=== PATIENT | male | born 1960 | race Caucasian/White ===

== ENCOUNTER 2020-12-01 10:19 | Inpatient (IN) | payer OTHER, SELFPAY ==
[~2020-12-01] VITALS: Ht 185.4 cm; Wt 96.7 kg
[~2020-12-01 10:19] MED LIST: CHANTIX1 MG PO; FLEXERIL10 MG PO; HUMALOG INSULIN PUMP; LISINOPRIL 5 MG5 MG PO; NEURONTIN100 M1 PO; NEURONTIN300 MG PO; NORCO 5-325 TA1 EACH PO; SYNTHROID150 MCG PO; VICODIN 10/3251 EACH PO; ZOCOR10 MG PO
[2020-12-01 10:51] LABS: BASOPHIL 0.2 % (0-2); EOSINOPHIL 0 % (0-5); HCT 40.8 % (42.0-52.0); HGB 12.5 g/dl (13.2-18.0); MCH 32.7 pg (25.0-31.0); MCHC 30.6 g/dL (32.0-36.0); MCV 106.8 fL (78.0-100.0); MONOCYTE 6.8 % (0-12); MPV 11.2 fL (6.0-9.5); NEUTROPHIL 85.9 % (41-80); NRBC 0; PLT 240 K/uL (150-400); RBC 3.82 M/uL (4.70-6.00); RDW 12.8 % (11.5-14.0); WBC 16.9 K/uL (4.0-10.5)
[2020-12-01 12:02] LABS: ALBUMIN 3.5 g/dL (3.4-5.0); ALKALINE PHOSHATASE 101 U/L (46-116); ALT 29 U/L (16-63); AST 35 U/L (15-37); BILIRUBIN - TOTAL 0.5 mg/dL (0.2-1.0); BUN 60 mg/dL (7-18); BUN/CREAT RATIO (CALC) 21.4 RATIO; CHLORIDE 92 mmol/L (98-107); CO2 (BICARBONATE) 10 mmol/L (21-32); GLOBULIN (CALCULATION) 3.6 g/dL; POTASSIUM 5.3 mmol/L (3.5-5.1); TOTAL PROTEIN 7.1 g/dL (6.4-8.2)
[2020-12-01 12:05] LABS: GLUCOSE >750 mg/dL (74-106)
[2020-12-01 12:41] LABS: BILIRUBIN 1+ mg/dL (NEGATIVE); BLOOD 1+ Ery/uL (NEGATIVE); CLARITY CLEAR (CLEAR); COLOR YELLOW (YELLOW); GLUCOSE (U) 3+ mg/dL (NORMAL); LEUKOCYTES NEGATIVE Leu/uL (NEGATIVE); NITRITE NEGATIVE (NEGATIVE); PROTEIN NEGATIVE (NEGATIVE); SPECIFIC GRAVITY 1.015 (1.001-1.030); UROBILINOGEN 0.2 mg/dL (0.2-1.0)
[2020-12-01 12:47] LABS: URINARY WBC RARE
[2020-12-01 12:48] LABS: SQUAMOUS EPITHELIAL CELLS RARE
[2020-12-01] MEDS ORDERED: LEVOTHYROXINE137 MC1 PO (15:59)
[2020-12-01] MEDS ORDERED: ZOLOFT50 MG PO (16:00)
[2020-12-01] MEDS ORDERED: LIPITOR20 M1 PO (16:00)
[2020-12-01] MEDS ORDERED: PRINIVIL10 MG PO (16:01)
[2020-12-01] MEDS ORDERED: ZANAFLEX4 M1 PO (16:03)
[2020-12-01] MEDS ORDERED: GABAPENTIN800 MG PO (16:03)
[2020-12-01] MEDS ORDERED: HYDROCODON-ACE1 EAC2 PO (16:04)
[2020-12-01 18:24] LABS: CREATININE 2.4 mg/dL (0.67-1.17)
[2020-12-02 03:32] LABS: HCT 34.5 % (42.0-52.0); HGB 11.8 g/dl (13.2-18.0); MCH 32.4 pg (25.0-31.0); MCHC 34.2 g/dL (32.0-36.0); MCV 94.8 fL (78.0-100.0); MPV 10.6 fL (6.0-9.5); RBC 3.64 M/uL (4.70-6.00); RDW 12.9 % (11.5-14.0); WBC 16.3 K/uL (4.0-10.5)
[2020-12-02 03:44] LABS: BUN/CREAT RATIO (CALC) 28.9 RATIO; CREATININE 1.8 mg/dL (0.67-1.17); POTASSIUM 4.3 mmol/L (3.5-5.1)
--- NOTE | 2020-12-02 13:53 | NUR ---
12/02/20 Mr. Cevallos lives alone. He uses a cane. Otherwise, he is independent in the home and community. Mr. Cevallos has PCP, Dr. Esparza, and criminal justice faculty. He reports to manage his diabetes. Mr. Cevallos has a $200.00 co-payment for his [employer]. He was referred to [employer] financial assistance program and [facility]. - Mr. Cevallos is not interested in services.
[2020-12-03 04:29] LABS: HCT 34.7 % (42.0-52.0); HGB 11.6 g/dl (13.2-18.0); MCH 32.6 pg (25.0-31.0); MCHC 33.4 g/dL (32.0-36.0); MCV 97.5 fL (78.0-100.0); MPV 10.5 fL (6.0-9.5); RBC 3.56 M/uL (4.70-6.00); RDW 13.3 % (11.5-14.0); WBC 8.3 K/uL (4.0-10.5)
[2020-12-03 04:44] LABS: CREATININE 1.13 mg/dL (0.67-1.17); POTASSIUM 4.1 mmol/L (3.5-5.1)
--- NOTE | 2020-12-03 16:49 | NUR ---
12/03/20 PT recommended HH. A referral was made to [facility] per patient choice; affliation explained.
[2020-12-04 06:21] LABS: HGB 12.3 g/dl (13.2-18.0); MCH 31.9 pg (25.0-31.0); MCHC 33.2 g/dL (32.0-36.0); MCV 95.9 fL (78.0-100.0); MPV 10.4 fL (6.0-9.5); RBC 3.86 M/uL (4.70-6.00); RDW 12.6 % (11.5-14.0)
[2020-12-04 06:52] LABS: BUN/CREAT RATIO (CALC) 15.4 RATIO; CREATININE 0.78 mg/dL (0.67-1.17); POTASSIUM 3.6 mmol/L (3.5-5.1)
[2020-12-04] MEDS ORDERED: NORVASC5 MG PO (10:34)
== END 2020-12-04 15:55 | disposition home health service (06) | DRG 638 ==
LOC: FER 10:19 → FICU 12:15 → FTCU 12-03 08:57
PROVIDERS: Emergency Medicine; ADMIT Hospitalist
DX: E10.10 Type 1 diabetes mellitus with ketoacidosis without coma (principal); N17.9 Acute kidney failure, unspecified; E03.9 Hypothyroidism, unspecified; I10 Essential (primary) hypertension; Z20.822 Contact with and (suspected) exposure to COVID-19; E78.5 Hyperlipidemia, unspecified; G89.29 Other chronic pain; M54.9 Dorsalgia, unspecified; F17.210 Nicotine dependence, cigarettes, uncomplicated
CPT/HCPCS: 36415; 36600; 80048; 80053; 81001; 82803; 82962; 83605; 85025; 87040; 87088; 94010; 97116; 97162; 97530-GP; J1650; J2405; J2543; J2765; J3480; J7030; J7040; Q0169; U0002

== ENCOUNTER 2021-05-16 13:11 | Inpatient (IN) | payer OTHER ==
[~2021-05-16] VITALS: Ht 185.4 cm; Wt 97.3 kg
[~2021-05-16 13:11] MED LIST changes: +GABAPENTIN800 MG PO; +HYDROCODON-ACE1 EAC2 PO; +LEVOTHYROXINE137 MC1 PO; +LIPITOR20 M1 PO; +NORVASC5 MG PO; +PRINIVIL10 MG PO; +ZANAFLEX4 M1 PO; +ZOLOFT50 MG PO
[2021-05-16 13:39] LABS: BASOPHIL 0.3 % (0-2); EOSINOPHIL 0 % (0-5); HCT 38.3 % (42.0-52.0); HGB 12.6 g/dl (13.2-18.0); LYMPHOCYTE 6.6 % (15-48); MCH 32.1 pg (25.0-31.0); MCHC 32.9 g/dL (32.0-36.0); MCV 97.5 fL (78.0-100.0); MONOCYTE 6.7 % (0-12); MPV 11.1 fL (6.0-9.5); NEUTROPHIL 85.5 % (41-80); NRBC 0; PLT 267 K/uL (150-400); RBC 3.93 M/uL (4.70-6.00); RDW 13.5 % (11.5-14.0); WBC 13.4 K/uL (4.0-10.5)
[2021-05-16 14:14] LABS: ALBUMIN 3.8 g/dL (3.4-5.0); BILIRUBIN - TOTAL 0.9 mg/dL (0.2-1.0); BUN/CREAT RATIO (CALC) 25.9 RATIO; CREATININE 1.62 mg/dL (0.67-1.17); GLOBULIN (CALCULATION) 3.9 g/dL; TOTAL PROTEIN 7.7 g/dL (6.4-8.2)
[2021-05-16 14:25] LABS: CORONAVIRUS 2019 SARS-COV-2 NEGATIVE (NEGATIVE); INFLUENZA A NAA NEGATIVE (NEGATIVE)
[2021-05-16 18:05] LABS: BUN/CREAT RATIO (CALC) 25.4 RATIO; CREATININE 1.73 mg/dL (0.67-1.17); MAGNESIUM 2.1 mg/dL (1.8-2.4); POTASSIUM 4.9 mmol/L (3.5-5.1)
[2021-05-16 18:19] LABS: BILIRUBIN NEGATIVE (NEGATIVE); BLOOD NEGATIVE Ery/uL (NEGATIVE); CLARITY CLEAR (CLEAR); COLOR YELLOW (YELLOW); GLUCOSE (U) 3+ mg/dL (NORMAL); LEUKOCYTES NEGATIVE Leu/uL (NEGATIVE); NITRITE NEGATIVE (NEGATIVE); PROTEIN NEGATIVE (NEGATIVE); SPECIFIC GRAVITY 1.025 (1.001-1.030); UROBILINOGEN 0.2 mg/dL (0.2-1.0); pH 5.5 (5.0-9.0)
--- NOTE | 2021-05-16 18:24 | NUR ---
BLADDER SCANNED 294ML AFTER VOIDING 650ML
[2021-05-16 23:43] LABS: BUN/CREAT RATIO (CALC) 28.8 RATIO; CREATININE 1.32 mg/dL (0.67-1.17); POTASSIUM 4.3 mmol/L (3.5-5.1)
--- NOTE | 2021-05-17 05:11 | NUR ---
ANION GAP OF 6.4 REPORTED TO MIRIAM HERNÁNDEZ. NO NEW ORDERS.
[2021-05-17 06:10] LABS: CREATININE 1.16 mg/dL (0.67-1.17); POTASSIUM 4.5 mmol/L (3.5-5.1)
[2021-05-17 11:32] LABS: BUN/CREAT RATIO (CALC) 30.3 RATIO; CREATININE 0.99 mg/dL (0.67-1.17); POTASSIUM 4.1 mmol/L (3.5-5.1)
[2021-05-18 05:45] LABS: BASOPHIL 0.5 % (0-2); EOSINOPHIL 1.8 % (0-5); HCT 31.3 % (42.0-52.0); LYMPHOCYTE 25.2 % (15-48); MCH 32.4 pg (25.0-31.0); MCHC 35.1 g/dL (32.0-36.0); MONOCYTE 7.3 % (0-12); MPV 10.6 fL (6.0-9.5); NEUTROPHIL 64.9 % (41-80); NRBC 0; PLT 166 K/uL (150-400); RBC 3.39 M/uL (4.70-6.00); RDW 14.2 % (11.5-14.0); WBC 6.3 K/uL (4.0-10.5)
[2021-05-18 05:48] LABS: MCV 92.3 fL (78.0-100.0)
[2021-05-18 06:09] LABS: BUN/CREAT RATIO (CALC) 18.9 RATIO; CREATININE 0.9 mg/dL (0.67-1.17); POTASSIUM 4.5 mmol/L (3.5-5.1)
--- NOTE | 2021-05-18 12:02 | NUR ---
05/18/21 Patient to be discharged. No discharge planning needs are anticipated.
[2021-06-23] MEDS ORDERED: PEPCID AC20 MG PO (11:52)
== END 2021-05-18 12:34 | disposition home or self-care (01) | DRG 638 ==
LOC: FER 13:11 → FICU 14:59 → FTCU 05-17 16:56 → FICU 05-18 11:09 → FTCU 05-18 11:11
PROVIDERS: Hospitalist; Nurse Practitioner Family; ADMIT Allergy & Immunology Allergy
DX: E10.10 Type 1 diabetes mellitus with ketoacidosis without coma (principal); N17.9 Acute kidney failure, unspecified; E03.9 Hypothyroidism, unspecified; Z20.822 Contact with and (suspected) exposure to COVID-19; E78.5 Hyperlipidemia, unspecified; G89.29 Other chronic pain; I10 Essential (primary) hypertension; M54.9 Dorsalgia, unspecified; R91.1 Solitary pulmonary nodule; F17.200 Nicotine dependence, unspecified, uncomplicated; E87.5 Hyperkalemia; E86.9 Volume depletion, unspecified; Z79.899 Other long term (current) drug therapy; Z79.890 Hormone replacement therapy; Z98.890 Other specified postprocedural states
CPT/HCPCS: 36415; 36600; 71045; 74018; 80048; 80053; 81003; 82803; 82962; 83605; 83735; 85025; 87040; 93005; J0696; J1170; J1650; J2405; J7030; J7120; J7121; U0002

== ENCOUNTER 2021-06-10 22:58 | Emergency (ER) | payer OTHER ==
[2021-06-10 23:28] LABS: BASOPHIL 0.9 % (0-2); EOSINOPHIL 4.4 % (0-5); HCT 31.9 % (42.0-52.0); HGB 10.9 g/dl (13.2-18.0); LYMPHOCYTE 31.6 % (15-48); MCH 32.5 pg (25.0-31.0); MCHC 34.2 g/dL (32.0-36.0); MCV 95.2 fL (78.0-100.0); MONOCYTE 8.8 % (0-12); MPV 10.3 fL (6.0-9.5); NEUTROPHIL 53.8 % (41-80); NRBC 0; PLT 199 K/uL (150-400); RBC 3.35 M/uL (4.70-6.00); RDW 14.1 % (11.5-14.0); WBC 6.6 K/uL (4.0-10.5)
[2021-06-10 23:41] LABS: ALBUMIN 3.5 g/dL (3.4-5.0); BILIRUBIN - TOTAL 0.2 mg/dL (0.2-1.0); BUN/CREAT RATIO (CALC) 12.2 RATIO; CREATININE 1.15 mg/dL (0.67-1.17); GLOBULIN (CALCULATION) 3.2 g/dL; TOTAL PROTEIN 6.7 g/dL (6.4-8.2)
[2021-06-11 03:21] LABS: BILIRUBIN NEGATIVE (NEGATIVE); BLOOD NEGATIVE Ery/uL (NEGATIVE); CLARITY CLEAR (CLEAR); COLOR YELLOW (YELLOW); GLUCOSE (U) NORMAL (NORMAL); LEUKOCYTES NEGATIVE Leu/uL (NEGATIVE); NITRITE NEGATIVE (NEGATIVE); PROTEIN NEGATIVE (NEGATIVE); SPECIFIC GRAVITY <=1.005 (1.001-1.030); UROBILINOGEN 0.2 mg/dL (0.2-1.0); pH 5.5 (5.0-9.0)
[2021-06-23] MEDS ORDERED: PEPCID AC20 MG PO (11:52)
== END 2021-06-11 04:13 | disposition home or self-care (01) ==
LOC: FER 22:58
PROVIDERS: Emergency Medicine
DX: E10.649 Type 1 diabetes mellitus with hypoglycemia without coma (principal)
CPT/HCPCS: 36415; 71045; 80053; 81003; 85025

== ENCOUNTER 2021-07-20 03:16 | Emergency (ER) | payer OTHER ==
[~2021-07-20 03:16] MED LIST changes: +PEPCID AC20 MG PO
[2021-07-20 03:41] LABS: BASOPHIL 1.2 % (0-2); EOSINOPHIL 3.1 % (0-5); HCT 34.5 % (42.0-52.0); HGB 11.5 g/dl (13.2-18.0); LYMPHOCYTE 25.2 % (15-48); MCHC 33.3 g/dL (32.0-36.0); MCV 99.1 fL (78.0-100.0); MONOCYTE 9.3 % (0-12); MPV 10.1 fL (6.0-9.5); NRBC 0; PLT 213 K/uL (150-400); RBC 3.48 M/uL (4.70-6.00); RDW 14.1 % (11.5-14.0); WBC 4.8 K/uL (4.0-10.5)
[2021-07-20 03:58] LABS: ALBUMIN 3.3 g/dL (3.4-5.0); BILIRUBIN - TOTAL 0.3 mg/dL (0.2-1.0); BUN/CREAT RATIO (CALC) 9.1 RATIO; CREATININE 1.1 mg/dL (0.67-1.17); GLOBULIN (CALCULATION) 3.4 g/dL; TOTAL PROTEIN 6.7 g/dL (6.4-8.2)
[2021-07-20 04:34] LABS: BILIRUBIN NEGATIVE (NEGATIVE); BLOOD NEGATIVE Ery/uL (NEGATIVE); CLARITY CLEAR (CLEAR); COLOR YELLOW (YELLOW); GLUCOSE (U) NORMAL (NORMAL); LEUKOCYTES NEGATIVE Leu/uL (NEGATIVE); NITRITE NEGATIVE (NEGATIVE); PROTEIN NEGATIVE (NEGATIVE); SPECIFIC GRAVITY <=1.005 (1.001-1.030); UROBILINOGEN 0.2 mg/dL (0.2-1.0)
== END 2021-07-20 05:30 | disposition home or self-care (01) ==
LOC: FER 03:16
PROVIDERS: Emergency Medicine
DX: R41.82 Altered mental status, unspecified (principal); E11.9 Type 2 diabetes mellitus without complications; F17.200 Nicotine dependence, unspecified, uncomplicated
CPT/HCPCS: 36415; 80053; 81003; 85025; 99285